=== PATIENT | male | born 2000 | race Caucasian/White ===

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

== ENCOUNTER 2024-03-03 12:08 | Emergency (ER) | payer OTHER, SELFPAY ==
[2024-03-03 12:10] VITALS: BP 131/73; PULSE 80; RESP 18; TEMP 37.1; O2SAT 99; BMI 26.6
--- NOTE | 2024-03-03 12:35 | EX.ED.DYSGE1 ---
HPI <DIVINA Richardson - Last Filed: 03/03/24 14:38> History of Present Illness Chief Complaint: Cough Narrative Narrative: Patient presenting today with a productive cough he has had intermittently for several weeks, he reports that he does smoke marijuana daily and attributed his cough to that. He also notices that when he is inhaling marijuana he occasionally feels sharp pains in his chest. Yesterday he noticed brown-colored phlegm, prompting him to come in today for evaluation. He denies fevers, chills, chest pain, shortness of breath, history of blood clots. He denies a PMH of any chronic medical conditions. PFSH <DIVINA Richardson - Last Filed: 03/03/24 14:38> PFSH Medical History Marijuana use Splenic rupture ADHD (attention deficit hyperactivity disorder) Home Medications ?Medication ?Instructions ?Recorded ?Last Taken ?Type dextroamphetamine-amphetamine 15 15 mg PO DAILY 11/09/20 Unknown History mg tablet (Adderall) azithromycin 250 mg tablet See Rx Instructions PO .COMPLEX #6 03/03/24 Unknown Rx tabs Allergy/AdvReac Type Severity Reaction Status Date / Time No Known Allergies Allergy Verified 03/03/24 12:09 Social History Smoking Status: Never smoker ROS <DIVINA Richardson - Last Filed: 03/03/24 14:38> ROS ED Constitutional Constitutional ED: Denies chills or fever(s) Cardiovascular Cardiovascular: Denies chest pain Respiratory/Chest Respiratory/Chest: Reports cough and sputum; Denies dyspnea, tachypnea or wheezing Gastrointestinal Gastrointestinal: Denies abdominal pain, nausea or vomiting Genitourinary Genitourinary ED: Denies dysuria, hematuria or urinary urgency Musculoskeletal Musculoskeletal: Denies arthralgias or myalgias Integumentary Denies rash Neurologic Neurologic: Denies weakness EXAM <DIVINA Richardson - Last Filed: 03/03/24 14:38> Physical Exam Const Vital Signs: 03/03/24 12:10 03/03/24 12:54 03/03/24 14:29 Temperature 98.7 F 98.7 F Temperature Source Oral Pulse Rate 80 77 Respiratory Rate 18 16 Respiratory Effort Normal Non-Labored Respiratory Depth Normal Respiratory Pattern Normal Blood Pressure 131/73 H 121/74 H Blood Pressure Mean 92 89 Pulse Ox 99 99 Oxygen Delivery Method Room Air Room Air Positive well nourished, well developed and no apparent distress General Appearance ED: well developed HEENT Reports normocephalic and head/scalp atraumatic Mouth ED: Yes moist mucous membranes normal Eyes PERRL and EOMs intact bilaterally Neck full ROM and supple Chest Wall inspection of chest normal Resp normal respiratory effort and clear to auscultation bilaterally Cardio regular rate and regular rhythm GI soft to palpation, non-tender, non-distended and no masses Back/Spine normal ROM and normal to inspection Extremity normal to inspection and full ROM Neuro oriented x3, CN's II-XII intact bilaterally, moves all extremities, no focal motor deficits and no sensory deficits noted Sensorium / Orientation: awake and alert Psych mental status grossly normal and thought process normal Skin no rashes or lesions noted and no wounds <Dr. Linette Negron DO - Last Filed: 03/03/24 14:11> Physical Exam Const Vital Signs: 03/03/24 12:10 03/03/24 12:54 03/03/24 14:29 Temperature 98.7 F 98.7 F Temperature Source Oral Pulse Rate 80 77 Respiratory Rate 18 16 Respiratory Effort Normal Non-Labored Respiratory Depth Normal Respiratory Pattern Normal Blood Pressure 131/73 H 121/74 H Blood Pressure Mean 92 89 Pulse Ox 99 99 Oxygen Delivery Method Room Air Room Air [facility] [place] <DIVINA Richardson - Last Filed: 03/03/24 14:38> [facility] Narrative Medical decision making narrative: Patient presenting due to a productive cough he has had intermittently over the past several weeks, he does smoke marijuana daily. He reports occasional pains in his chest with while inhaling marijuana smoke. Yesterday he began coughing up brown-colored phlegm, prompting him to come in today for evaluation. He is nontoxic-appearing, O2 saturation is 99% on room air, he is afebrile. Chest x-ray will be obtained to rule out infiltrate and is negative. He is PERC negative, low suspicion for PE. We will place him on a Z-Nicholas, encouraged to follow-up with his PCP. I did encourage marijuana cessation as his symptoms may be related to ongoing irritation from his heavy marijuana use. He will be discharged home in stable condition. I have personally performed a face to face assessment of the patient and have reviewed the MARISOL Note. I performed a substantive portion of the visit including all aspects of the following. My malcolm findings include: History is [patient presents the emergency department complaint of a cough that he has had for months. He attributed initially to a smoker's cough because he smokes very heavy amounts of marijuana. Patient states that he smokes from sun up to . At times he is bringing up some thick brown phlegm and sputum. He denies fevers. He had intermittent sharp stabbing pains in his chest when he inhales. Patient states that he is cutting back on the marijuana use. He does not smoke cigarettes. Denies any illicit drugs otherwise. Denies recent surgery or travel.] Exam is [HEENT-PERRLA, EOMI. Cranial nerves II through XII grossly intact. TMs clear. Mucous membranes moist. No adenopathy. Cardiovascular-regular rate and rhythm without murmur or ectopy Lungs-clear to auscultation, chest wall stable without crepitus or subcu emphysema Abdomen-normoactive bowel sounds, soft, nontender, no rebound or rigidity, no peritoneal signs. Extremities-intact ?4, normal range of motion, normal pulses, atraumatic] Medical Decison Making [patient had a chest x-ray that was unremarkable. He is coughing up some thick brown phlegm at times so we will cover for atypical bacterial infection with Zithromax. Symptoms may be due to chronic lung irritation related to heavy chronic smoking of marijuana and recommended that he discontinue. Will refer to primary care physician for follow-up] Other additions or changes: [None] Radiography Diagnostic Testing: Clinical Impression(s) from Imaging Studies Chest X-Ray 03/03/24 12:45 IMPRESSION: Embolization coils in the left upper quadrant. Otherwise, no acute findings. Electronically Signed: Luis Trujillo DO at 13:37 EST , <Dr. Linette Negron DO - Last Filed: 03/03/24 14:11> MDM MDM Narrative Medical decision making narrative: Patient presenting due to a productive cough he has had intermittently over the past several weeks, he does smoke marijuana daily. Yesterday he began coughing up brown-colored phlegm, prompting him to come in today for evaluation. He is nontoxic-appearing, O2 saturation is 99% on room air, he is afebrile. Chest x-ray will be obtained to rule out infiltrate. I have personally performed a face to face assessment of the patient and have reviewed the MARISOL Note. I performed a substantive portion of the visit including all aspects of the following. My malcolm findings include: History is [patient presents the emergency department complaint of a cough that he has had for months. He attributed initially to a smoker's cough because he smokes very heavy amounts of marijuana. Patient states that he smokes from sun up to . At times he is bringing up some thick brown phlegm and sputum. He denies fevers. He had intermittent sharp stabbing pains in his chest when he inhales. Patient states that he is cutting back on the marijuana use. He does not smoke cigarettes. Denies any illicit drugs otherwise. Denies recent surgery or travel.] Exam is [HEENT-PERRLA, EOMI. Cranial nerves II through XII grossly intact. TMs clear. Mucous membranes moist. No adenopathy. Cardiovascular-regular rate and rhythm without murmur or ectopy Lungs-clear to auscultation, chest wall stable without crepitus or subcu emphysema Abdomen-normoactive bowel sounds, soft, nontender, no rebound or rigidity, no peritoneal signs. Extremities-intact ?4, normal range of motion, normal pulses, atraumatic] Medical Decison Making [patient had a chest x-ray that was unremarkable. He is coughing up some thick brown phlegm at times so we will cover for atypical bacterial infection with Zithromax. Symptoms may be due to chronic lung irritation related to heavy chronic smoking of marijuana and recommended that he discontinue. Will refer to primary care physician for follow-up] Other additions or changes: [None] Radiography Diagnostic Testing: Clinical Impression(s) from Imaging Studies Chest X-Ray 03/03/24 12:45 IMPRESSION: Embolization coils in the left upper quadrant. Otherwise, no acute findings. Electronically Signed: Luis Trujillo DO at 13:37 EST , Discharge Plan Triage Chief Complaint: Cough ED Midlevel Provider: Lexi Olivia ED Provider: Linette Negron Dx/Rx/DC Orders Clinical Impression: Bronchitis, Cannabis use disorder Instructions: ED Upper Resp Infec Abx Tx Prescriptions: New azithromycin 250 mg tablet See Rx Instructions .ROUTE .COMPLEX Qty: 6 0RF Rx Instructions: For 250 mg dose pack: take 500 mg today (day 1), then 250 mg for 4 days (days 2-5) No Action dextroamphetamine-amphetamine [Adderall] 15 mg Tablet 15 mg PO DAILY Primary Care Provider: Adelita Goncalves Referrals: Adelita Goncalves MD [Primary Care Provider] - 5-7 Days Activity Restrictions/Additional Instructions: Follow-up with your PCP, return for any other concerns. Print Language: Yi Disposition Disposition: Home, Self Care Discharge Date/Time: 03/03/24 14:30
--- NOTE | 2024-03-03 12:45 | RAD_ITS ---
EXAM: XR CHEST, 2 VIEWS CLINICAL INDICATION: cough TECHNIQUE: Frontal and lateral views of the chest. COMPARISON: 11/09/2020 FINDINGS: LUNGS AND PLEURAL SPACES: No significant abnormality. No consolidation or edema. No pneumothorax. No effusion. HEART: No significant abnormality. Cardiac silhouette not enlarged. MEDIASTINUM: Central airways and mediastinal contour are unremarkable. BONES/JOINTS: No significant abnormality. No acute fracture. SOFT TISSUES: No significant abnormality. VASCULATURE: Embolization coils in the left upper quadrant. RAD/Chest PA and Lateral IMPRESSION: Embolization coils in the left upper quadrant. Otherwise, no acute findings. Electronically Signed: Luis Trujillo DO at 13:37 EST ,
[2024-03-03 12:54] VITALS: O2SAT 98
[2024-03-03 14:29] VITALS: BP 121/74; PULSE 77; RESP 16; TEMP 37.1; O2SAT 99
== END 2024-03-03 14:30 | disposition home or self-care (01) ==
PROVIDERS: Emergency Provider Emergency Medicine; PCP Pediatrics; Referring Provider Emergency Medicine; Visit Provider Emergency Medicine
DX: J40 Bronchitis, not specified as acute or chronic (principal); F12.90 Cannabis use, unspecified, uncomplicated; F90.9 Attention-deficit hyperactivity disorder, unspecified type; Z79.899 Other long term (current) drug therapy
CPT/HCPCS: 71046; 99282